=== PATIENT | female | born 1995 | race Caucasian/White ===

== ENCOUNTER 2023-02-03 11:34 | Emergency (ER) | payer OTHER ==
[2023-02-03 11:51] VITALS: BP 129/69; O2SAT 99
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
== END 2023-02-03 12:40 | disposition home or self-care (01) ==
LOC: ED 11:34
DX: S06.0X0A Concussion without loss of consciousness, initial encounter (principal); V49.9XXA Car occupant (driver) (passenger) injured in unspecified traffic accident, initial encounter
CPT/HCPCS: 99281; 99283

== ENCOUNTER 2023-10-22 08:49 | Outpatient (CLI) | payer OTHER ==
--- NOTE | 2023-10-22 10:23 | MRI Report ---
PROCEDURE: Brain WO INDICATIONS: MIGRAINE TECHNIQUE: Noncontrast axial T1 spin echo, axial T2 fast spin echo, sagittal and axial FLAIR, coronal T2 fast sp in echo, axial gradient echo, axial diffusion and ADC through the brain. COMPARISON: None. FINDINGS: Image quality: Excellent. CSF Spaces: Basal cisterns are patent. No extra-axial fluid collections. Ventricles are normal in size and shape. Brain: No intracranial masses or hemorrhage. Danielle/white matter interface is normal. Brainstem appe ars normal. Diffusion-weighted images demonstrate no acute ischemic insult. No chronic ischemic ins ults. Normal intravascular flow voids are present. Skull and face: Calvarium has normal marrow signal. Orbits appear normal. Sinuses: Sinuses and mastoids are clear. IMPRESSION: Normal intracranial study for age, without a cause of migraine headaches identified. No suspicious T2 hyperintense white matter lesions are seen. To the limits of this noncontrast study, no findings of masses or mass effect can be seen. No prior territorial infarction can be seen. Reviewed by: Pee Eagle MD on 10/22/2023 9:21 AM AC Approved by: Pee Ealge MD on 10/22/2023 9:21 AM AC Station ID: [id number]
== END 2023-10-22 08:50 | disposition home or self-care (01) ==
LOC: DI 08:49
PROVIDERS: ATTEND Preventive Medicine Aerospace Medicine
DX: G43.909 Migraine, unspecified, not intractable, without status migrainosus (principal)